=== PATIENT | female | born 1955 | race Two or more races ===

== ENCOUNTER 2021-09-15 08:00 | Outpatient (REF) | payer OTHER, SELFPAY ==
--- NOTE | ~2021-09-15 | XR_ITS ---
EXAMINATION: XR AP KNEE, BILATERAL XR KNEE RIGHT CLINICAL INFORMATION: Pain right knee. COMPARISON: None. TECHNIQUE: AP bilateral knee standing. Right knee 2 views. FINDINGS: AP Bilateral Knee: The medial and lateral compartment joint space is maintained in both knees. No bony erosive changes. No soft tissue swelling. Right Knee: The patellofemoral compartment joint space is maintained. Minimal periarticular spurring seen. No fracture, dislocation or loose bodies. No abnormal joint effusion. XR/XR knee standing BI IMPRESSION: Mild degenerative spurring patellofemoral compartment. No acute fracture, dislocation or joint effusion.
--- NOTE | ~2021-09-15 | XR_ITS ---
EXAMINATION: XR AP KNEE, BILATERAL XR KNEE RIGHT CLINICAL INFORMATION: Pain right knee. COMPARISON: None. TECHNIQUE: AP bilateral knee standing. Right knee 2 views. FINDINGS: AP Bilateral Knee: The medial and lateral compartment joint space is maintained in both knees. No bony erosive changes. No soft tissue swelling. Right Knee: The patellofemoral compartment joint space is maintained. Minimal periarticular spurring seen. No fracture, dislocation or loose bodies. No abnormal joint effusion. XR/XR knee RT 2V IMPRESSION: Mild degenerative spurring patellofemoral compartment. No acute fracture, dislocation or joint effusion.
== END 2021-09-15 08:01 | disposition home or self-care (01) ==
LOC: HO.HOSX 08:00
PROVIDERS: Visit Provider Orthopaedic Surgery
DX: M17.11 Unilateral primary osteoarthritis, right knee (principal); Z98.890 Other specified postprocedural states
CPT/HCPCS: 20610; 73560; 73565; 99202; J1100

== ENCOUNTER 2021-10-27 08:38 | Outpatient (REF) | payer OTHER, SELFPAY ==
--- NOTE | ~2021-10-27 | XR_ITS ---
EXAMINATION: 1. RADIOGRAPHS RIGHT SHOULDER 2. RADIOGRAPHS LEFT KNEE CLINICAL INFORMATION: Pain within the right shoulder and left knee COMPARISON: Bilateral knee radiographs 09/15/2021 TECHNIQUE: 3 views of the right shoulder and lateral and patellar sunrise views of the left knee were obtained. FINDINGS: Right shoulder: Visualized portion of the proximal right humerus demonstrate no fracture. Humeral head demonstrates good articulation with the glenoid fossa. Mild hypertrophic changes of the right acromioclavicular joint. Visualized right-sided ribs and lung parenchyma are unremarkable. Left knee: No gross fracture or dislocation. No suprapatellar joint effusion. Moderate-sized patellar enthesophytes. No soft tissue swelling of the anterior knee. XR/XR shoulder RT min 2V IMPRESSION: -Mild degenerative changes of the right shoulder without fracture or dislocation. -Mild degenerative changes of the left knee.
--- NOTE | ~2021-10-27 | XR_ITS ---
EXAMINATION: 1. RADIOGRAPHS RIGHT SHOULDER 2. RADIOGRAPHS LEFT KNEE CLINICAL INFORMATION: Pain within the right shoulder and left knee COMPARISON: Bilateral knee radiographs 09/15/2021 TECHNIQUE: 3 views of the right shoulder and lateral and patellar sunrise views of the left knee were obtained. FINDINGS: Right shoulder: Visualized portion of the proximal right humerus demonstrate no fracture. Humeral head demonstrates good articulation with the glenoid fossa. Mild hypertrophic changes of the right acromioclavicular joint. Visualized right-sided ribs and lung parenchyma are unremarkable. Left knee: No gross fracture or dislocation. No suprapatellar joint effusion. Moderate-sized patellar enthesophytes. No soft tissue swelling of the anterior knee. XR/XR knee LT 2V IMPRESSION: -Mild degenerative changes of the right shoulder without fracture or dislocation. -Mild degenerative changes of the left knee.
== END 2021-10-27 08:39 | disposition home or self-care (01) ==
LOC: HO.HOSX 08:38
PROVIDERS: Visit Provider Orthopaedic Surgery
DX: M75.41 Impingement syndrome of right shoulder (principal); M17.12 Unilateral primary osteoarthritis, left knee
CPT/HCPCS: 20610; 73030; 73560; 99212